=== PATIENT | female | born 1960 | race Caucasian/White ===

== ENCOUNTER → 2016-06-27 | Outpatient (CLI) | payer BC ==
[~2016-06-27] MED LIST: MULT-608; VITAMIN C; VITAMIN D
--- NOTE | 2016-06-28 19:56 | Diagnostic Imaging Report ---
Bilateral screening mammogram The current study was also evaluated with a Computer Aided Detection (CAD) system. Indication: Screening. No current complaints stated on the questionnaire. COMPARISON: 06/25/15 FINDINGS: The breasts are composed of scattered fibroglandular densities. There are benign-appearing calcifications. There is a biopsy clip in the central upper and another biopsy clip in the central lower aspect of the right breast. Allowing for technique and positional differences, no suspicious change is seen. IMPRESSION: No significant change. ACR BI-RADS Category 2: Benign findings. Result letter will be mailed to the patient. Note: At least 10% of breast cancer is not imaged by mammography. Dictated by: Dictated on workstation # [id number]
== END ==
LOC: RAD 12:47
PROVIDERS: ATTEND Nurse Practitioner
DX: Z12.31 Encounter for screening mammogram for malignant neoplasm of breast (principal)
CPT/HCPCS: 77067

== ENCOUNTER → 2017-06-29 | Outpatient (CLI) | payer BC ==
--- NOTE | 2017-07-02 18:08 | Diagnostic Imaging Report ---
INDICATION: Digital mammogram bilateral screening with 3-D tomosynthesis. This study was compared to the prior exams of 06/27/16, 06/25/15 and 04/20/14. At this time, there are no current complaints. The current study was also evaluated with a Computer Aided Detection (CAD) system. FINDINGS: There are scattered fibroglandular densities in both breasts which could obscure a lesion. When compared to the prior study, there has been no significant change. There is no primary or secondary sign of malignancy noted. The 3D tomographic views also fail to show any sign of malignancy. The stereotactic clip in the right breast seen previously is again evident. IMPRESSION: There is no evidence of malignancy. ACR BI-RADS Category 1: Negative. Result letter will be mailed to the patient. Note: At least 10% of breast cancer is not imaged by mammography. Dictated by: Dictated on workstation # [id number]
== END ==
LOC: RAD 13:08
PROVIDERS: ATTEND Nurse Practitioner
DX: Z12.31 Encounter for screening mammogram for malignant neoplasm of breast (principal)
CPT/HCPCS: 77067

== ENCOUNTER → 2018-07-18 | Outpatient (CLI) | payer BC ==
--- NOTE | 2018-07-19 17:36 | Diagnostic Imaging Report ---
INDICATION: Routine screening. COMPARISON: Prior mammogram from 06/29/2017 and 06/27/2016. EXAMINATION: 2D and 3D bilateral screening mammography was performed with CAD. The current study was also evaluated with a Computer Aided Detection (CAD) system. FINDINGS: Scattered fibroglandular densities are identified, bilaterally. Breast biopsy marker clips in the right breast are again noted. There are benign calcifications in both breasts. Tiny benign nodular densities in the right breast are stable. No spiculated mass or malignant appearing microcalcifications are seen. Axillae are unremarkable. IMPRESSION: No mammographic features suspicious for malignancy are identified. ACR BI-RADS Category 2: Benign findings. Result letter will be mailed to the patient. Note: At least 10% of breast cancer is not imaged by mammography. Dictated on workstation # [id number]
== END ==
LOC: RAD 14:23
PROVIDERS: ATTEND Nurse Practitioner
DX: Z12.31 Encounter for screening mammogram for malignant neoplasm of breast (principal)
CPT/HCPCS: 77067

== ENCOUNTER 2022-10-30 13:46 | Emergency (ER) | payer BC ==
--- NOTE | 2022-10-30 13:59 | ED General ---
General Chief Complaint: Cough/Cold/Flu Symptoms Stated Complaint: KOROMA; SORE THROAT; LT EAR PAIN; FEVER; COUGH Source of Information: Patient Exam Limitations: No Limitations History of Present Illness Date Seen by Provider: Oct 30, 2022 Time Seen by Provider: 13:49 Initial Comments 62-year-old female coming in due to 3 days of sore throat, now with left ear pain, headache, and fever that started yesterday. Denies any cough, nausea, vomiting, diarrhea, chest pain, shortness of breath, abdominal pain, rash, weakness, numbness, or any other concerns. She did take Tylenol 7 hours ago for temp around 103. Otherwise has not taken any other medicines today. Allergies and Home Medications Allergies Coded Allergies: Penicillins (Unverified Allergy, Mild, RASH, 05/18/09) Sulfa (Sulfonamides) (Unverified Allergy, Unknown, 08/13/06) Patient Home Medication List Home Medication List Reviewed: Yes Multivitamins (Multiple Vitamin) 1 Tab Tablet, (Reported) Entered as Reported by: GORDO BOSTON on 05/10/09941 [Vitamin C] , (Reported) Entered as Reported by: GORDO BOSTON on 05/10/09942 [Vitamin D] , (Reported) Entered as Reported by: GORDO BOSTON on 05/10/09942 Review of Systems Review of Systems Constitutional: fever EENTM: throat pain Respiratory: No cough Cardiovascular: No chest pain Gastrointestinal: No abdominal pain Genitourinary: no symptoms reported Musculoskeletal: no symptoms reported Skin: no symptoms reported Psychiatric/Neurological: No Symptoms Reported Hematologic/Lymphatic: No Symptoms Reported Past [id number] Hx Patient Social History Tobacco Use?: No Past Medical History Reproductive Disorders: No Physical Exam Vital Signs Vital Signs - First Documented 10/30/22 13:50 Temp 38.6 Pulse 107 Resp 16 B/P (MAP) 139/74 (95) Pulse Ox 97 O2 Delivery Room Air Capillary Refill : Height, Weight, BMI Height: 5'0.00" Weight: 200lbs. oz. 90.644983ig; BMI Method: General Appearance: No Apparent Distress, WD/WN Eyes: Bilateral Eye Normal Inspection HEENT: PERRL/EOMI, Tonsillar Exudate (and erythema, normal voice, uvula midlin e), Other (Right TM with Dibent SP tube in place, left TM dull, red) Neck: Full Range of Motion, Normal Inspection, Non Tender, Supple, Other (No meningismus) Respiratory: Chest Non Tender, Lungs Clear, Normal Breath Sounds, No Accessory Muscle Use, No Respiratory Distress Cardiovascular: Regular Rate, Rhythm, No Edema, Normal Peripheral Pulses Gastrointestinal: Normal Bowel Sounds, Non Tender, Soft; No Guarding Back: Normal Inspection, No CVA Tenderness Extremity: Normal Capillary Refill, Normal Inspection, Normal Range of Motion, Non Tender, No Calf Tenderness, No Pedal Edema Neurologic/Psychiatric: Alert, No Motor/Sensory Deficits, Normal Mood/Affect Skin: Normal Color, Warm/Dry Progress/Results/Core Measures Suspected Sepsis SIRS Temperature: Pulse: Respiratory Rate: Blood Pressure / Mean: Results/Orders Lab Results Laboratory Tests Test 10/30/22 14:04 Range/Units Influenza Type A (RT-PCR) Not Detected Not Detecte Influenza Type B (RT-PCR) Not Detected Not Detecte SARS-CoV-2 RNA (RT-PCR) Not Detected Not Detecte Group A Streptococcus Screen POSITIVE H NEGATIVE My Orders Orders - FREDDY CLARKE MD Rapid Strep A Screen (10/30/22 13:56) Influenza A And B By Pcr (10/30/22 13:56) Covid 19 Inhouse Test (10/30/22 13:56) Acetaminophen Tablet (Acetaminophen Ta (10/30/22 14:00) Ceftriaxone Iv/Im (Ceftriaxone Iv/Im) (10/30/22 15:15) Lidocaine 1% Inj 20 Ml (Xylocaine 1% Inj (10/30/22 15:15) Medications Given in ED Current Medications Medications Dose Ordered Sig/Quoc Route Start Time Stop Time Status Last Admin Dose Admin Acetaminophen 1,000 mg ONCE ONCE PO 10/30/22 14:00 10/30/22 14:01 DC 10/30/22 14:12 1,000 MG Vital Signs/I&O 10/30/22 13:50 Temp 38.6 Pulse 107 Resp 16 B/P (MAP) 139/74 (95) Pulse Ox 97 O2 Delivery Room Air Capillary Refill : Progress Note : Progress Note 62-year-old female with above history coming in due to sore throat, fever, left ear pain, headache. ABCs were intact and vitals were stable on presentation although she is febrile. She was given Tylenol for her fever. Flu and COVID testing sent and were negative. Strep testing sent and was positive. Clinically it does look like strep as well and she does not have a cough which fits the diagnosis as well. Unfortunately, she also has a dull red bulging left tympanic membrane concerning for otitis media. She was given a shot of ceftriaxone here and will be given a prescription. I believe she stable for discharge with outpatient follow-up. She was sent home with strict return precautions Departure Impression Primary Impression: Strep throat Additional Impression: Otitis media Qualified Codes: H66.002 - Acute suppurative otitis media without spontaneous rupture of ear drum, left ear Disposition: HOME, SELF-CARE Condition: Stable Departure-Patient Inst. Decision time for Depature: 15:25 Referrals: CHANDRIKA HUBBARD MD (PCP) Primary Care Physician Patient Instructions: Strep Throat ED, Ear Infections (Otitis Media) in Adults (DC) Add. Discharge Instructions: You do unfortunately have strep throat, and her left ear does look infected, they are likely linked. You will be due for your next dose of antibiotics siddhartha rrow. Nausea medicines were sent to your pharmacy if you were to need those as well. Scripts Ondansetron (Ondansetron Odt) 4 Mg Tab.rapdis 4 MG SL Q6H PRN for NAUSEA/VOMITING for 5 Days, #20 TAB Prov: FREDDY CLARKE MD 10/30/22 Cefuroxime Axetil (Cefuroxime) 250 Mg Tablet 250 MG PO BID for 18 Days, #14 TAB Prov: FREDDY CLARKE MD 10/30/22 Work/School Note: Family Work Note, Patient Received Medical Care In the Emergency Department On: Oct 30, 2022 Patient Will Be Able to Return to Work/School On: Oct 31, 2022 Work Release Form Date Seen in the Emergency Department: Oct 30, 2022 Return to Work: Nov 01, 2022 Restrictions: Return-No Fever (24hrs) FREDDY CLARKE MD Oct 30, 2022 13:59
[2022-10-30] MEDS ORDERED: ACETAMINOPHEN 500 MG TABLET PO ONE (14:00)
[2022-10-30] MEDS ORDERED: CEFU250T80 PO ×2 (15:12→15:13)
[2022-10-30] MEDS ORDERED: ONDA4TAB11 SL (15:13)
[2022-10-30] MEDS ORDERED: cefTRIAXone 1,000 MG VIAL IV/IM IM ONE (15:15)
[2022-10-30] MEDS ORDERED: LIDOCAINE 1% INJ 20 ML VIAL INJ ONE (15:15)
[2022-10-30 15:16] VITALS: BP 139/74
== END 2022-10-30 15:16 | disposition home or self-care (01) ==
LOC: EDUNIT# 13:46 → ER FS 13:47
DX: J02.9 Acute pharyngitis, unspecified (principal); H66.92 Otitis media, unspecified, left ear; Z88.0 Allergy status to penicillin; Z88.2 Allergy status to sulfonamides; Z20.822 Contact with and (suspected) exposure to COVID-19
CPT/HCPCS: 87430; 87636; 99284